=== PATIENT | male | born 2000 | race Caucasian/White ===

== ENCOUNTER 2019-04-12 20:36 | Emergency (ER) | payer MEDICAID ==
[~2019-04-12] VITALS: Ht 185.4 cm; Wt 109.3 kg
[2019-04-12 20:45] VITALS: BP 140/98
--- NOTE | 2019-04-12 20:53 | NUR ---
PT AMBULATED BACK OUT TO [facility]
--- NOTE | 2019-04-12 21:15 | NUR ---
CALLED PT FOR BED, NO ANSWER.
--- NOTE | 2019-04-12 21:20 | NUR ---
TO ED 07
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
--- NOTE | 2019-04-12 21:45 | NUR ---
Dr. Luis examining patient.
--- NOTE | 2019-04-12 21:47 | NUR ---
SECURITY AT BEDSIDE.
[2019-04-12] MEDS ORDERED: NACL 0.9% 1,000 ML IV ONE (21:50)
[2019-04-12] MEDS ORDERED: HALOPERIDOL IM 5 MG/ML VIAL IM ONE (21:50)
--- NOTE | 2019-04-12 22:00 | NUR ---
PT TO CT VIA [facility]ARGOTH BY [employer]
--- NOTE | 2019-04-12 22:11 | NUR ---
PT RETURN FROM CT
--- NOTE | 2019-04-12 22:19 | NUR ---
LAB AT BEDSIDE.
[2019-04-12 22:29] LABS: BASOPHILS % (AUTO) 0.3 % (0.0-2.0); EOSINOPHILS # (AUTO) 0.1 K/uL (0-0.4); EOSINOPHILS % (AUTO) 1.2 % (0.0-4.0); HEMATOCRIT 43.4 % (36-52); HEMOGLOBIN 14.2 g/dL (12.0-18.0); LYMPHOCYTES # (AUTO) 1.8 K/uL (2.0-11.5); LYMPHOCYTES % (AUTO) 19.2 % (20.5-51.1); MEAN CORPUSCULAR HEMOGLOBIN 29 pg (27-31); MEAN CORPUSCULAR HGB CONC 33 g/dL (33-37); MEAN CORPUSCULAR VOLUME 87.5 fL (80-94); MONOCYTES # (AUTO) 0.7 K/uL (0.8-1.0); NEUTROPHILS # (AUTO) 6.5 K/uL (1.8-7.7); NEUTROPHILS % (AUTO) 71.3 % (42.2-75.2); PLATELET COUNT (AUTO) 217 K/uL (140-450); RED BLOOD CELL COUNT(AUTO) 4.96 MIL/uL (4.20-6.10); RED CELL DISTRIBUTION WIDTH 13.8 % (11.6-13.7); WHITE BLOOD COUNT (AUTO) 9.1 K/uL (4.5-11.0)
[2019-04-12 22:38] LABS: ANION GAP 10.1 (8-16); CARBON DIOXIDE 28.1 mmol/L (21-32); CHLORIDE 105 mmol/L (98-107); CREATININE 0.9 mg/dL (0.7-1.3); GFR ARICAN-AMERICAN 138 mL/min (>90); GLUCOSE 114 mg/dL (74-106); POTASSIUM 3.2 mmol/L (3.5-5.1); SODIUM SERUM 140 mmol/L (136-145); UREA NITROGEN, BLOOD 9 mg/dL (7-18)
[2019-04-12 22:47] LABS: PROTHROMBIN TIME 10.3 secs (10.8-13.4)
[2019-04-12 22:52] LABS: ALBUMIN 3.4 g/dL (3.4-5.0); ASPARTATE AMINOTRANSFERASE 15 U/L (15-37); FREE T4 (FREE THYROXINE) 1.44 ng/dL (0.76-1.46); THYROID STIMULATING HORMONE 1.81 uIU/mL (0.34-3.74); TOTAL BILIRUBIN 0.3 mg/dL (0.0-1.0)
[2019-04-12 22:56] LABS: ACETAMINOPHEN < 0.5 ug/ml (10-30); SALICYLATE < 2.8 mg/dL (2.8-20.0)
--- NOTE | 2019-04-12 23:00 | NUR ---
PT ENCOURAGED TO GIVE URINE SAMPLE, WATER PROVIDED.
--- NOTE | 2019-04-12 23:10 | NUR ---
PT REFUSING TO GIVE URINE SAMPLE, PT REQUESTING IV TO BE D/C. IV REMOVED, PRESSURE AND BANDAGE APPLIED, TIP INTACT, BLEEDING CONTROLLED. ERMD AWARE.
--- NOTE | 2019-04-12 23:11 | NUR ---
PT ENCOURAGED TO STAY, PT STATES HE HAS TO GO AND IS UNWILLING TO GET DISCHARGE FROM DR. JANNETTE SCOTT AWARE.
--- NOTE | 2019-04-12 23:33 | NUR ---
PATIENT ELOPED FROM FACILITY. DISCHARGE INSTRUCTIONS NOT GIVEN TO PATIENT. DR. KILGORE NOTIFIED.
== END 2019-04-12 23:33 | disposition left against medical advice (07) ==
LOC: MED 20:36
DX: R51 Headache (principal); M79.631 Pain in right forearm; R94.6 Abnormal results of thyroid function studies; F12.10 Cannabis abuse, uncomplicated
CPT/HCPCS: 36415; 70450; 73090; 80053; 84439; 84443; 85025; 85610; 96372; 99284; G0480; G0482; J1630; J7030; Q0092

== ENCOUNTER 2019-04-13 17:24 | Inpatient (IN) | payer MEDICAID ==
[~2019-04-13] VITALS: Ht 193 cm; Wt 109.3 kg
[2019-04-13] MEDS ORDERED: NACL 0.9% 1,000 ML IV ONE (17:45)
[2019-04-13 18:00] VITALS: BP 109/36
--- NOTE | 2019-04-13 20:17 | NUR ---
PT WAS CALLED BACK TO A BED, PT REFUSED TO COME IN. PT WALKED OUTSIDE. MOM TRIED TO GET PT TO COME IN. PT REFUSED.
--- NOTE | 2019-04-13 21:35 | NUR ---
DR. SARGENT BEDSIDE EVALUATING PT
--- NOTE | 2019-04-13 22:00 | NUR ---
PT AMBULATED TO BED 5.
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
--- NOTE | 2019-04-13 22:30 | NUR ---
PROVIDED PT WITH URINE CUP AND EXPLAINED NEED FOR URINE SAMPLE.
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
[2019-04-13 23:22] LABS: ALBUMIN 3.2 g/dL (3.4-5.0); ANION GAP 14.2 (8-16); ASPARTATE AMINOTRANSFERASE 16 U/L (15-37); CARBON DIOXIDE 25.3 mmol/L (21-32); CHLORIDE 104 mmol/L (98-107); CREATININE 0.7 mg/dL (0.7-1.3); GFR ARICAN-AMERICAN 185 mL/min (>90); GLUCOSE 111 mg/dL (74-106); POTASSIUM 3.5 mmol/L (3.5-5.1); SODIUM SERUM 140 mmol/L (136-145); TOTAL BILIRUBIN 0.2 mg/dL (0.0-1.0); UREA NITROGEN, BLOOD 11 mg/dL (7-18)
[2019-04-13 23:23] LABS: ACETAMINOPHEN < 0.5 ug/ml (10-30); SALICYLATE < 2.8 mg/dL (2.8-20.0)
--- NOTE | 2019-04-13 23:30 | NUR ---
PT IS SLEEPING COMFORTABLY IN BED. SKIN PINK, WARM, DRY. BREATHING EVEN, UNLABORED.
[2019-04-13 23:32] LABS: APPEARANCE,URINE CLEAR (CLEAR); BILIRUBIN,URINE NEGATIVE (NEGATIVE); BLOOD, URINE NEGATIVE (NEGATIVE); COLOR,URINE YELLOW (YELLOW); LEUKOCYTE ESTERASE ,URINE NEGATIVE (NEGATIVE); NITRITE, URINE NEGATIVE (NEGATIVE); PH,URINE 6.5 (5.0-9.0); UGLUCOSE NEGATIVE (NEGATIVE)
[2019-04-13 23:38] LABS: BARBITURATE, URINE NEG. ng/ml (NEG <=200); BENZODIAZEPINE, URINE NEG. ng/mL (NEG <=200); CANNABINOID, URINE POS. ng/mL (NEG <=50); COCAINE, URINE NEG. ng/mL (NEG <=300); OPIATE, URINE NEG. ng/mL (NEG <=2000); PHENCYCLIDINE SCREEN,URINE NEG. ng/mL (NEG <=25)
--- NOTE | 2019-04-14 00:30 | NUR ---
PT IS SLEEPING COMFORTABLY IN BED. SKIN PINK, WARM, DRY. BREATHING EVEN, UNLABORED.
--- NOTE | 2019-04-14 01:30 | NUR ---
PT IS SLEEPING COMFORTABLY IN BED. SKIN PINK, WARM, DRY. BREATHING EVEN, UNLABORED.
--- NOTE | 2019-04-14 02:32 | NUR ---
PT IS SLEEPING COMFORTABLY IN BED. SKIN PINK, WARM, DRY. BREATHING EVEN, UNLABORED.
--- NOTE | 2019-04-14 03:08 | NUR ---
CALL BACK FROM [employer] TO SPEAK TO PT VIA TELEPSYCH MOMENTARILY.
--- NOTE | 2019-04-14 03:15 | NUR ---
REPORT GIVEN TO DR. BEVERLY, PSYCHIATRIST. AWAITING TELEPSYCH CALL.
--- NOTE | 2019-04-14 03:20 | NUR ---
TELEPSYCH CONSULT IN PROGRESS WITH DR. BEVERLY.
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
--- NOTE | 2019-04-14 04:00 | NUR ---
JABARI CASTILLO [facility] NUMBER: [phone].
[2019-04-14] MEDS ORDERED: OLANZapine 5 MG TAB PO ONE (04:35)
[2019-04-14] MEDS ORDERED: LORazepam 1 MG TAB PO PRN (04:35)
[2019-04-14] MEDS ORDERED: OLANZapine 5 MG TAB ONE (04:53)
--- NOTE | 2019-04-14 05:30 | NUR ---
TRIED CALLING DENIAA FROM [facility] FOR PLACEMENT FOR PT, NO ANSWER, WLL CONTINUE TO CALL TILL GET A RESPONSE. JANNETTE SCOTT MADE AWARE
--- NOTE | 2019-04-14 05:48 | NUR ---
CALLED AND SPOKE TO GUANACO FROM [facility] REGARDING PLACEMENT. NO PLACEMENT AT THIS TIME/NO BEDS AVAIL. JANNETTE SCOTT MADE AWARE.
--- NOTE | 2019-04-14 06:00 | NUR ---
PT IS SLEEPING COMFORTABLY IN BED. SKIN PINK, WARM, DRY. BREATHING EVEN, UNLABORED.
--- NOTE | 2019-04-14 07:04 | NUR ---
Henrietta jones in [facility] - 04/14/19 at 0763 by [facility] REPORT GIVEN TO HECTOR HUTCHINSON.
--- NOTE | 2019-04-14 07:05 | NUR ---
REPORT RECEIVED FROM HECTOR MAY FOR CONTINUITY OF CARE. PT LAYING IN BED, ASLEEP AT THIS TIME.
--- NOTE | 2019-04-14 07:05 | NUR ---
PT IS SLEEPING COMFORTABLY IN BED. SKIN PINK, WARM, DRY. BREATHING EVEN, UNLABORED.
--- NOTE | 2019-04-14 07:26 | NUR ---
REPORT GIVEN TO HECTOR RODRÍGUEZ.
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
--- NOTE | 2019-04-14 07:56 | NUR ---
PT EATING BREAKFAST AT BEDSIDE
--- NOTE | 2019-04-14 08:53 | NUR ---
PT ASLEEP IN BED, NO ACUTE DISTRESS NOTED. NO NEW NEEDS AT THIS TIME.
[2019-04-14 09:20] VITALS: BP 130/51
--- NOTE | 2019-04-14 09:20 | NUR ---
RECEIVED REPORT FROM ED NURSE. PATIENT ARRIVED VIA GURNEY, AMBULATED WITH STEADY GAIT TO BED. UNABLE TO DETERMINE ALOC, PATIENT NONVERBAL BUT FOLLOWS COMMANDS. RESPIRATIONS ARE EVEN AND UNLABORED ON ROOM AIR. FLACC 0. 1:1 SITTER PROVIDED. PLAN OF CARE WAS REVIEWED WITH PATIENT. PATIENT UNABLE TO VERBALIZE UNDERSTANDING. SAFETY MEASURES IN PLACE.
--- NOTE | 2019-04-14 09:20 | NUR ---
Patient will be admitted to care of DR. RAYGOZA. Admited to MED SURG. Will go to room 109B. Belongings list completed. Report to HECTOR PONCE.
[2019-04-14] MEDS ORDERED: SODIUM PHOSPHATE 118 ML ENEM RC PRN (10:55)
[2019-04-14] MEDS ORDERED: MAG SULF 2000 MG/WATER PREMIX 50 ML IV PRN (10:55)
[2019-04-14] MEDS ORDERED: ALBUTEROL 0.083% 2.5 MG/3 ML NEBU INH PRN (10:55)
[2019-04-14] MEDS ORDERED: ONDANSETRON 4 MG/2 ML VIAL IVP PRN (10:55)
[2019-04-14] MEDS ORDERED: ZOLPIDEM 5 MG TAB PO PRN (10:55)
[2019-04-14] MEDS ORDERED: diphenhydrAMINE 50 MG/ML VIAL IVP PRN (10:55)
[2019-04-14] MEDS ORDERED: MAGNESIUM OXIDE 400 MG TAB PO PRN (10:55)
[2019-04-14] MEDS ORDERED: ALUMINUM HYD/MAG/SIMETHICONE 30 ML UDC PO PRN (10:55)
[2019-04-14] MEDS ORDERED: DOCUSATE SODIUM 250 MG GELCAP PO PRN (10:55)
[2019-04-14] MEDS ORDERED: BISACODYL 10 MG SUPP RC PRN (10:55)
[2019-04-14] MEDS ORDERED: ACETAMINOPHEN 650 MG SUPP RC PRN (10:55)
[2019-04-14] MEDS ORDERED: ACETAMINOPHEN 325 MG TAB PO PRN (10:55)
[2019-04-14] MEDS ORDERED: POTASSIUM CHLORIDE 40 MEQ, LIDOCAINE 1% 25 MG in NACL 0.9% 250 ML IV PRN (10:55)
[2019-04-14] MEDS ORDERED: cloNIDine 0.1 MG TAB PO PRN (10:55)
[2019-04-14] MEDS ORDERED: IPRATROPIUM 0.02% 0.5 MG/2.5 ML NEBU INH PRN (10:55)
[2019-04-14] MEDS ORDERED: LORazepam 2 MG/ML VIAL IVP PRN (10:55)
[2019-04-14] MEDS ORDERED: HYDROcodone/APAP 5/325 MG 1 TAB TAB PO PRN ×2 (10:55)
[2019-04-14] MEDS ORDERED: POTASSIUM CHLORIDE 10 MEQ TABER PO PRN (10:55)
[2019-04-14] MEDS ORDERED: guaiFENesin DM 200/20 MG-10 ML 10 ML UDC PO PRN (10:55)
--- NOTE | 2019-04-14 11:40 | NUR ---
PATIENT SLEEPING, EASILY AROUSABLE. FLACC 0. NO OTHER NEEDS AT THIS TIME.
--- NOTE | 2019-04-14 13:01 | NUR ---
PATIENT STILL SLEEPING, EASILY AROUSABLE. FLACC 0. PATIENT CONTINUE TO BE NONVERBAL. WILL ONLY NOD AND SHAKE HEAD TO QUESTIONS. WILL CONTINUE TO MONITOR.
--- NOTE | 2019-04-14 13:02 | NUR ---
ANDIE FAXED TO [phone], PHONE NUMBER [phone], SHE WILL LOOK FOR IN PSYCH FACILITY.
--- NOTE | 2019-04-14 13:29 | NUR ---
PT REFUSED TO BE ASSESSED FOR BREATHING TX
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
[2019-04-14] MEDS: MORPHINE SULFATE 2 MG/ML SYR IVP PRN ×2 (14:41→20:25)
--- NOTE | 2019-04-14 14:52 | NUR ---
SISTER WAS PRESENT AT BEDSIDE, WISHES TO BE MAKE DECISIONS FOR PATIENT, PATIENT NODDED AGREEMENT. WILL KEEP SISTER UPDATED PER PATIENT REQUEST. BEST CONTACT NUMBER IS OR . PSYCHIATRIST WITH PATIENT.
--- NOTE | 2019-04-14 15:55 | NUR ---
SPOKE WITH CHERELLE FROM [facility]. PATIENT IS AWAITING PLACEMENT. FAXED OVER [phone] HOLD. FAX NUMBER AND DIRECT LINE IS .
[2019-04-14 16:00] VITALS: BP 137/55
--- NOTE | 2019-04-14 16:04 | NUR ---
PATIENT IS ABLE TO VERBALIZE NEEDS WITH SISTER PRESENT AT BEDSIDE. STATED THAT HE WISHES TO GO SMOKE OUTSIDE. GAVE PATIENT TEACHING ON THE 5150 HOLD AND WHY HE WAS NOT ABLE TO BE OUTSIDE. PATIENT VERBALIZED UNDERSTANDING. WILL CONTINUE TO MONITOR.
--- NOTE | 2019-04-14 18:10 | NUR ---
PATIENT SLEEPING, EASILY AROUSABLE. DENIES ANY PAIN AT THIS TIME. NO OTHER NEEDS AT THIS TIME.
--- NOTE | 2019-04-14 18:57 | NUR ---
Late entry for 04/14/19 @ 04:45 Called the following contracted psych facilities regarding bed placement. [facility], spoke with Pinky. They have no beds available at that time. [facility], spoke with Keren. No beds available at that time, packet was faxed. [facility], spoke with Santino. They are at full capacity and can not accommodate the patient. [facility], spoke with Celio. No beds available but are welcomed to call back during day shift for pending discharges. [facility], spoke with Rachel. Requested to fax packet next shift for AM review for pending discharges. [facility], spoke with Noa, they only have beds available for children and adolescent. [facility], spoke with Alissa, no beds available, they have patients pending in their ED for admission. Addendum: 04/14/19 at 1929 by Tammi Salguero CM Packet was faxed to [facility].
--- NOTE | 2019-04-14 19:16 | NUR ---
ENDORSED TO CALL CENTER AGENT FOR CONTINUITY OF CARE. PATIENT IS STABLE AT THIS TIME.
--- NOTE | 2019-04-14 19:28 | NUR ---
Call Center NOC shift is aware of patient and will follow up with contracted facilities for bed placement.
--- NOTE | 2019-04-14 19:30 | NUR ---
RECEIVED BEDSIDE REPORT FROM DAY SHIFT RN, PATIENT IN BED, SLEEPING, 1:[address]. PATIENT C/O SEVERE PAIN WILL MEDICATE ACCORDING TO MD ORDER, V/S STABLE, RIGHT AC 20 G, SL, DRESSING INTACT. NOTED FX ON RIGHT FA, WRAPPED, DRESSING INTACT.
--- NOTE | 2019-04-14 20:25 | NUR ---
GAVE DUE ZYPREXA AND MORPHINE IVP FOR PAIN
[2019-04-14] MEDS ORDERED: OLANZapine 5 MG TAB PO SCH (21:00)
--- NOTE | 2019-04-14 22:31 | NUR ---
CALL FROM [facility], FAXED OVER [phone] HOLD. WILL SEE IF CAN ACCOMMODATE PATIENT SINCE PATIENT HAS FRACTURE.
[2019-04-14 23:46] VITALS: BP 126/68
--- NOTE | 2019-04-15 | NUR ---
PATIENT SLEEPING IN BED, SITTER AT BEDSIDE, WILL CONTINUE TO MONITOR
--- NOTE | 2019-04-15 01:00 | NUR ---
Follow up calls were made through out shift to contracted psych facilities. [facility], spoke with Pinky. No beds available for patient tonight. [facility], spoke with Dina. No beds available until Tuesday when they have pending discharges. [facility], spoke with Vera. They have no beds available through out this shift, recommended we call back tomorrow morning around 10AM to see if they have any pending discharges. [facility], spoke with Noa. At this time they have no adult beds available. [facility], spoke with Ledy. They have pending admissions in their ED and can not accommodate outside facilities at this time. [facility], spoke with Sundar, they can not accommodate the patient tonight due to unit being at max capacity. Called some [facility] facilities to see if they have any beds available. [facility], spoke with Arabella. Requested for chart to be faxed over for review. [facility], spoke with Renetta, no beds available tonight. [facility] , spoke with Douglas, no beds available for the night. [facility] ED will notify the unit if a bed becomes available.
--- NOTE | 2019-04-15 01:43 | NUR ---
PATIENT SLEEPING IN BED, SITTER AT BEDSIDE, WILL CONTINUE TO MONITOR
--- NOTE | 2019-04-15 04:30 | NUR ---
ASLEEP, SITTER AT BEDSIDE, NO SIGNS OF DISTRESS
--- NOTE | 2019-04-15 06:30 | NUR ---
PATIENT AMBULATED TO RESTROOM TO SEE IF NEED TO HAVE BM
--- NOTE | 2019-04-15 06:45 | NUR ---
GAVE COLACE FOR CONSTIPATION
--- NOTE | 2019-04-15 07:05 | NUR ---
RECEIVED BEDSIDE REPORT FROM NIGHT NURSE. PT IS SLEEPING IN BED EASILY AROUSED BY NAME. PATIENT IS AOX4 WITH A CALM AFFECT AND NO COMPLAINTS OR REQUESTS. PATIENT IS CITING NO HALLUCINATIONS AUDITORY OR VISUAL AT THIS TIME. PATIENT HAS ANA LAURA BANDAGE OVER RIGHT FOREARM AND HAND FROM WHAT NIGHT NURSE REPORTS A BONE FRACTURE. PATIENT IS STATING LAST BOWEL MOVEMENT ON 04/15/19 THIS MORNING. PT ON STANDARD ISOLATION ALL SAFETY MEASURES ASSESSED IN ROOM. ROOM CONTENTS ARE FOOD ITEMS AT BEDSIDE WITH NO OBVIOUS CONTRABAND WITHIN ROOM. PATIENT HAS A RIGHT ANTECUBITAL IV SITE THAT IS ASYMPOMATIC AND PATENT SALINE LOCKED. DISCUSSED POC WITH PATIENT PRESENCE WITH NIGHT NURSE TO APPARENTLY WAIT FOR DR GARDINER CONSULTATION PENDING. Addendum: 04/15/19 at 0948 by Ezekiel Moreland RN *THIS NURSE IS 1:1 SITTER. SITTER OBSERVATION PAPERWORK IN HAND AT THIS TIME AND TO BE FILLED OUT BY ME THROUGHOUT SHIFT.
--- NOTE | 2019-04-15 07:05 | NUR ---
ENDORSED PATIENT TO DAY SHIFT NURSE RADHA FOR CONTINUITY OF CARE, PATIENT STABLE.
[2019-04-15 07:39] VITALS: BP 96/50
--- NOTE | 2019-04-15 07:51 | NUR ---
PT SLEEPING IN BED, BREAKFAST ARRIVED AND PUT AT BEDSIDE TABLE FOR PATIENT. NO SIGNS OF DISCOMFORT OR DISTRESS, BREATHING UNLABORED.
--- NOTE | 2019-04-15 08:25 | NUR ---
PT SITTING UP IN BED EATING BREAKFAST. PT HAS NO COMPLAINTS OR REQUESTS. NO SIGNS OF DISTRESS BREATHING UNLABORED, NO COMPLAINTS OR SIGNS OF HALLUCINATIONS AUDITORY OR VISUAL.
--- NOTE | 2019-04-15 09:07 | NUR ---
PATIENT SLEEPING IN BED, BREATHING UNLABORED, NO SIGNS OF DISCOMFORT OR OBVIOUS DISTRESS.
--- NOTE | 2019-04-15 09:46 | NUR ---
PATIENT SLEEPING IN BED, BREATHING UNLABORED, NO SIGNS OF DISCOMFORT OR OBVIOUS DISTRESS.
--- NOTE | 2019-04-15 10:31 | NUR ---
PATIENT SLEEPING IN BED, BREATHING UNLABORED, NO SIGNS OF DISCOMFORT OR OBVIOUS DISTRESS.
--- NOTE | 2019-04-15 10:33 | NUR ---
CALIXTO CHARGE NURSE AND DR RAYGOZA AT BEDSIDE DISCUSSING POC THAT PSYCHE CONSULT SAW PT YESTERDAY AND IS STILL PENDING FOR PSYCHE CONSULT TODAY WELL FOR FURTHER PLAN.
--- NOTE | 2019-04-15 10:57 | NUR ---
DR GARDINER AT BEDSIDE DISCUSSING PLAN FOR DISCHARGE WITH PATIENT.
--- NOTE | 2019-04-15 11:16 | NUR ---
PATIENT SLEEPING IN BED, BREATHING UNLABORED, NO SIGNS OF DISCOMFORT OR OBVIOUS DISTRESS.
--- NOTE | 2019-04-15 11:28 | NUR ---
PT IN RESTROOM AMBULATING STEADY WITH NO COMPLAINTS OR REQUESTS.
--- NOTE | 2019-04-15 11:54 | NUR ---
C/O JEAN 04/02, TYLENOL GIVEN PER PRN ORDER
--- NOTE | 2019-04-15 11:54 | NUR ---
CALLED SISTER AND LEFT MESSAGE
[2019-04-15] MEDS ORDERED: OLAN2.5T1 PO (12:03)
[2019-04-15] MEDS ORDERED: OLAN20TA1 PO (12:03)
--- NOTE | 2019-04-15 12:37 | NUR ---
DISCHARGED PATIENT AT THIS TIME. PATIENT'S SISTER, PER PT REQUEST, SIGNED ALL DISCHARGE PAPERWORK. PRESCRIPTION AND ALL BELONGINGS WITH PATIENT AND SISTER WHO IS TRANSPORTING PATIENT HOME. PT IV REMOVED WITH CATHETER TIP INTACT, BANDAID APPLIED NO BLEEDING. ID BANDS REMOVED AND PUT INTO SHREDDER FOR DISPOSAL. PATIENT REQUESTED TO AMBULATE OUT ONLY ACCOMPANIED BY SISTER REFUSING WHEELCHAIR OR TRANSPORTATION OUT OF HOSPITAL. PT ANA LAURA BANDAGE STILL ON RIGHT ARM AND BANDAGE INTACT AT TIME OF DEPARTURE, PT HAD NO REQUESTS.
== END 2019-04-15 12:37 | disposition home or self-care (01) | DRG 750 ==
LOC: MED 17:24 → MTU 04-14 09:11
PROVIDERS: ADMIT Internal Medicine Pulmonary Disease; ATTEND Internal Medicine Pulmonary Disease
DX: F20.9 Schizophrenia, unspecified (principal); R45.851 Suicidal ideations; F29 Unspecified psychosis not due to a substance or known physiological condition; F31.9 Bipolar disorder, unspecified; F90.9 Attention-deficit hyperactivity disorder, unspecified type; F15.10 Other stimulant abuse, uncomplicated; F12.10 Cannabis abuse, uncomplicated; F17.200 Nicotine dependence, unspecified, uncomplicated
CPT/HCPCS: 36415; 80053; 80305; 81003; 87081; 99285; G0480; G0482; J2270

== ENCOUNTER 2019-06-05 16:13 | Emergency (ER) | payer MEDICAID ==
[~2019-06-05] VITALS: Ht 185.4 cm; Wt 105.7 kg
[~2019-06-05 16:13] MED LIST: OLAN2.5T1 PO
[2019-06-05 16:57] VITALS: BP 131/78
--- NOTE | 2019-06-05 17:00 | NUR ---
PT CALLED IN LOBBY NO ANSWER.
--- NOTE | 2019-06-05 17:01 | NUR ---
PT TO LOBBY
--- NOTE | 2019-06-05 17:10 | NUR ---
PT CALLED IN LOBBY NO ANSWER
--- NOTE | 2019-06-05 17:15 | NUR ---
Henrietta jones in [facility] - 06/05/19 at 1744 by MEDJARED PATIENT LEFT WITHOUT BEING SEEN BY DR. VERA. NO FURTHER CARE PROVIDED FOR PATIENT.
--- NOTE | 2019-06-05 17:42 | NUR ---
PT AMBULATED TO CHAIR B
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
--- NOTE | 2019-06-05 19:47 | NUR ---
ULNAR GUTTER SPLINT PLACED ON PT R ARM, WRAPPED IN ANA LAURA WRAP. +CSM
[2019-06-05 20:03] VITALS: BP 128/62
--- NOTE | 2019-06-05 20:03 | NUR ---
DISCHARGE PAPERS GIVEN TO PT. 12/03 TOLLERABLE PAIN. CIRCULATION INTACT AFTER SPLINT APPLICATION. RX OF IBUPROFEN AND MOTEPERAZOLE GIVEN. INSTRUCTED TO F/U WITH PCP AND ORTHOPEDICS AND WHEN TO RETURN TO ER. PT VERBALLIZED UNDERSTANDING OF DC INSTRUCTIONS. ALL QUESTIONS ANSWERED.
== END 2019-06-05 20:03 | disposition home or self-care (01) ==
LOC: MED 16:13
DX: S52.2 Fracture of shaft of ulna (principal); K21.9 Gastro-esophageal reflux disease without esophagitis; F17.210 Nicotine dependence, cigarettes, uncomplicated; F15.90 Other stimulant use, unspecified, uncomplicated; F12.90 Cannabis use, unspecified, uncomplicated; X58.XXXS Exposure to other specified factors, sequela
CPT/HCPCS: 74018; 81002; 99283

== ENCOUNTER 2019-06-07 15:51 | Emergency (ER) | payer MEDICAID ==
[~2019-06-07] VITALS: Ht 177.8 cm; Wt 107.6 kg
[2019-06-07 16:10] VITALS: BP 150/83
--- NOTE | 2019-06-07 16:20 | NUR ---
PT AMBULATED TO BED 10.
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
--- NOTE | 2019-06-07 19:22 | NUR ---
Report given to HECTOR Hagen and HECTOR Vallejo; Transfer of care at this time.
[2019-06-07] MEDS ORDERED: ALUMINUM HYD/MAG/SIMETHICONE 30 ML UDC PO ONE (19:30)
[2019-06-07] MEDS ORDERED: FAMOTIDINE 20 MG TAB PO ONE (19:30)
[2019-06-07 19:52] VITALS: BP 146/63
--- NOTE | 2019-06-07 20:05 | NUR ---
Patient discharged with v/s stable. Written and verbal after care instructions given and explained. Patient alert, oriented and verbalized understanding of instructions. Ambulatory with steady gait. All questions addressed prior to discharge. ID band removed. Patient advised to follow up with PMD. Rx of OMEPRAZOLE, TRAMADOL given. Patient educated on indication of medication including possible reaction and side effects. Opportunity to ask questions provided and answered.
== END 2019-06-07 20:05 | disposition home or self-care (01) ==
LOC: MED 15:51
DX: R10.13 Epigastric pain (principal); M79.631 Pain in right forearm; G89.29 Other chronic pain
CPT/HCPCS: 73090; 99283; Q0092

== ENCOUNTER 2021-10-31 13:57 | Emergency (ER) | payer MEDICAID ==
[~2021-10-31] VITALS: Ht 185.4 cm; Wt 154.2 kg
[2021-10-31 14:19] VITALS: BP 148/78
--- NOTE | 2021-10-31 14:20 | NUR ---
BIB SELF C/O 08/02 R TESTICULAR PAIN RADIATING TO RLQ ABDOMEN X TODAY.
--- NOTE | 2021-10-31 14:23 | NUR ---
[facility]NON. HANDED ON URINE CUP.
[2021-10-31] MEDS ORDERED: KETOROLAC 30 MG/ML VIAL IM ONE (17:35)
[2021-10-31] MEDS ORDERED: KETOROLAC 30 MG/ML VIAL ONE (19:12)
--- NOTE | 2021-10-31 19:19 | NUR ---
Patient discharged with v/s stable. Written and verbal after care instructions given and explained. Patient alert, oriented and verbalized understanding of instructions. Ambulatory with steady gait. All questions addressed prior to discharge. ID band removed. Patient advised to follow up with PMD. Rx of ACETAMINPHEN given. Patient educated on indication of medication including possible reaction and side effects. Opportunity to ask questions provided and answered.
[2021-10-31 19:20] VITALS: BP 148/78
[2021-10-31] MEDS ORDERED: IBUP-2213 PO (19:25)
== END 2021-10-31 19:19 | disposition home or self-care (01) ==
LOC: MED 13:57
DX: N50.811 Right testicular pain (principal)
CPT/HCPCS: 76870; 96372; 99284; J1885; Q0092